=== PATIENT | female | born 1995 | race African-American/Black ===

== ENCOUNTER 2018-01-12 06:33 | Inpatient (IN) | payer MEDICAID ==
[~2018-01-12] VITALS: Ht 162.6 cm; Wt 59.0 kg
[2018-01-12] MEDS ORDERED: LACTATED RINGERS 1,000 ML IV SCH (06:50)
[2018-01-12] MEDS ORDERED: OXYTOCIN 30U/ 0.9% NaCL 500ML 500 ML IV ONE (06:50)
[2018-01-12] MEDS ORDERED: D5%-LACTATED RINGERS 1,000 ML IV SCH (06:50)
[2018-01-12] MEDS ORDERED: NEWBORN KIT ONE (06:56)
[2018-01-12] MEDS ORDERED: LIDOCAINE/PF 1%, 30ML ONE (06:56)
[2018-01-12] MEDS ORDERED: OXYTOCIN 30U/ 0.9% NaCL 500ML 500 ML ONE (06:57)
[2018-01-12] MEDS ORDERED: MISOPROSTOL 200 MCG TABLET ONE (06:57)
[2018-01-12] MEDS ORDERED: FENTANYL PF 100 MCG/2ML IVPush PRN (07:00)
[2018-01-12] MEDS ORDERED: CALCIUM CARBONATE 500 MG TAB.CHEW PO PRN (07:00)
[2018-01-12] MEDS ORDERED: ONDANSETRON 2MG/ML, 2ML IVPush PRN (07:00)
[2018-01-12] MEDS ORDERED: TERBUTALINE 1 MG/ML, 1ML IVPush PRN (07:00)
[2018-01-12] MEDS ORDERED: FENTANYL PF 100 MCG/2ML IV PRN (07:00)
[2018-01-12] MEDS ORDERED: FENTANYL PF 100 MCG/2ML ONE (07:08)
[2018-01-12 07:31] LABS: BASOPHILS # (AUTO) 0.04 x10^3/uL (0-0.1); BASOPHILS % (AUTO) 1 % (0-1); EOSINOPHILS # (AUTO) 0.02 x10^3/uL (0-0.4); EOSINOPHILS % (AUTO) 0 % (1-7); LYMPHOCYTES # (AUTO) 1.35 x10^3/uL (1-3.4); LYMPHOCYTES % (AUTO) 16 % (22-44); MD NO; MEAN CORPUSCULAR HEMOGLOBIN 26.9 pg (27.0-34.8); MEAN CORPUSCULAR HGB CONC 32.6 g/dL (32.4-35.8); MEAN CORPUSCULAR VOLUME 82.5 fL (80-100); MEAN PLATELET VOLUME 8.6 fL (7.4-10.4); MONOCYTES # (AUTO) 1.05 x10^3/uL (0.2-0.8); MONOCYTES % (AUTO) 13 % (2-9); NEUTROPHILS # (AUTO) 5.96 x10^3/uL (1.8-6.8); NEUTROPHILS % (AUTO) 71 % (42-75); PLATELET COUNT 207 x10^3/uL (130-400); RED BLOOD COUNT 3.99 x10^6/uL (3.82-5.3)
[2018-01-12] MEDS ORDERED: IBUPROFEN 600 MG TABLET ONE (09:17)
[2018-01-12] MEDS: OXYTOCIN 30U/ 0.9% NaCL 500ML 500 ML IV SCH ×2 (09:20→19:20)
[2018-01-12] MEDS ORDERED: GLYCERIN ADULT SUPP PR PRN (09:30)
[2018-01-12] MEDS ORDERED: OXYcodone/APAP 5/325MG TABLET PO PRN (09:30)
[2018-01-12] MEDS ORDERED: ACETAMINOPHEN 325 MG TABLET PO PRN (09:30)
[2018-01-12] MEDS: IBUPROFEN 600 MG TABLET PO PRN ×3 (09:36→21:45)
[2018-01-12] MEDS ORDERED: PREN1TAB60 PO (10:21)
[2018-01-12] MEDS ORDERED: iron PO (10:22)
[2018-01-12 11:20] VITALS: BP 99/65
[2018-01-12 15:44] VITALS: BP 104/72
[2018-01-12 16:54] LABS: MEAN CORPUSCULAR HEMOGLOBIN 26.8 pg (27.0-34.8); MEAN CORPUSCULAR HGB CONC 32.2 g/dL (32.4-35.8); MEAN CORPUSCULAR VOLUME 83.2 fL (80-100); MEAN PLATELET VOLUME 7.9 fL (7.4-10.4); PLATELET COUNT 194 x10^3/uL (130-400); RED BLOOD COUNT 3.46 x10^6/uL (3.82-5.3); RED CELL DISTRIBUTION WIDTH 16.2 % (9.6-15.2)
[2018-01-12 17:12] LABS: BASOPHILS # (AUTO) 0.05 x10^3/uL (0-0.1); BASOPHILS % (AUTO) 0 % (0-1); EOSINOPHILS # (AUTO) 0.01 x10^3/uL (0-0.4); EOSINOPHILS % (AUTO) 0 % (1-7); LYMPHOCYTES # (AUTO) 1.26 x10^3/uL (1-3.4); LYMPHOCYTES % (AUTO) 9 % (22-44); MD SCAN; MONOCYTES # (AUTO) 1.82 x10^3/uL (0.2-0.8); MONOCYTES % (AUTO) 13 % (2-9); NEUTROPHILS # (AUTO) 11.39 x10^3/uL (1.8-6.8); NEUTROPHILS % (AUTO) 78 % (42-75)
[2018-01-12 20:40] VITALS: BP 98/67
[2018-01-12] MEDS: DOCUSATE 100 MG CAPSULE PO PRN (21:45)
[2018-01-12 23:45] VITALS: BP 99/67
[2018-01-13 04:10] VITALS: BP 95/62
[2018-01-13] MEDS: OXYTOCIN 30U/ 0.9% NaCL 500ML 500 ML IV SCH (05:20)
[2018-01-13] MEDS: DOCUSATE 100 MG CAPSULE PO PRN (08:04)
[2018-01-13 08:25] VITALS: BP 98/65
[2018-01-13] MEDS ORDERED: PRENATAL VIT/IRON/FA 1 EACH TABLET PO SCH (09:00)
[2018-01-13] MEDS ORDERED: IBUP-1222 PO (11:18)
[2018-01-13] MEDS ORDERED: DIPH,PERTUSS(ACELL),TET VAC/PF NC IM-VACC ONE ×2 (11:45→12:00)
== END 2018-01-13 14:00 | disposition home or self-care (01) | DRG 775 ==
LOC: LDOP 06:33 → LDIP 06:56 → 2NW 10:46
PROVIDERS: ADMIT Obstetrics & Gynecology; ATTEND Obstetrics & Gynecology
PROC: 10E0XZZ Delivery of Products of Conception, External Approach (ICD-10-PCS; principal; 2018-01-13)
PROC: 0HQ9XZZ Repair Perineum Skin, External Approach (ICD-10-PCS; 2018-01-13)
DX: O70.0 First degree perineal laceration during delivery (principal); Z37.0 Single live birth; Z3A.37 37 weeks gestation of pregnancy
CPT/HCPCS: 36415; 85025; 86850; 86900; 90715; J3010; J2590; J7120

== ENCOUNTER 2018-09-16 20:37 | Emergency (ER) | payer SELFPAY ==
[~2018-09-16] VITALS: Ht 162.6 cm; Wt 52.3 kg
[~2018-09-16 20:37] MED LIST: IBUP-1222 PO; PREN1TAB60 PO; iron PO
--- NOTE | 2018-09-16 22:30 | NUR ---
NO ANSWER WHEN CALLED IN LOBBY
--- NOTE | 2018-09-16 22:41 | NUR ---
NO ANSWER WHEN CALLED
--- NOTE | 2018-09-17 01:20 | NUR ---
URINE SAMPLE PROVIDED. COLLECTED AND SENT TO LAB.
[2018-09-17 01:34] LABS: HCG UR SG 1.024 (1.003-1.030); MICROSCOPIC AUTO
[2018-09-17 01:38] LABS: CULTURE INDICATED? YES
[2018-09-17] MEDS ORDERED: CEFDINIR 300 MG CAPSULE ONE (01:54)
[2018-09-17] MEDS ORDERED: PHENAZOPYRIDINE 200 MG TABLET ONE (01:54)
[2018-09-17] MEDS ORDERED: CEFDINIR 300 MG CAPSULE PO SCH (02:00)
[2018-09-17] MEDS ORDERED: PHENAZOPYRIDINE 200 MG TABLET PO ONE (02:00)
[2018-09-17 02:01] VITALS: BP 97/59
[2018-09-17] MEDS ORDERED: CEFDINIR 300 MG CAPSULE PO ONE (02:30)
== END 2018-09-17 02:03 | disposition home or self-care (01) ==
LOC: ED 09-17 01:57
DX: N39.0 Urinary tract infection, site not specified (principal)
CPT/HCPCS: 81001; 81025; 87077; 87086; 87186; 99283

== ENCOUNTER 2019-01-28 23:13 | Emergency (ER) | payer SELFPAY ==
[~2019-01-28] VITALS: Ht 162.6 cm; Wt 52.3 kg
[2019-01-28 23:14] VITALS: BP 102/67
--- NOTE | 2019-01-28 23:32 | NUR ---
PT AMBULATED STEADILY TO ROOM FROM LOBBY WITH RN. PT REPORTS VAGINAL DC "YELLOW" AND IS CONCERNED OF STD EXPOSURE. PT DENIES URINARY S/S, ABD PAIN, NAUSEA OR VOMITING. PELVIC GURNEY/PELVIC CART IN ROOM. PT CHANGED TO GOWN.
--- NOTE | 2019-01-28 23:34 | NUR ---
UA COLLECTED AND SENT
[2019-01-28 23:49] LABS: HCG UR SG 1.028 (1.003-1.030)
[2019-01-28 23:50] LABS: CULTURE INDICATED? YES; MICROSCOPIC INDICATED
[2019-01-29 00:14] LABS: CLUE CELLS NONE SEEN (NONE SEEN)
[2019-01-29 00:15] LABS: WET PREP WBCS MANY (FEW)
[2019-01-29] MEDS ORDERED: metroNIDAZOLE 500 MG TABLET ONE (00:21)
[2019-01-29] MEDS ORDERED: metroNIDAZOLE 500 MG TABLET PO ONE (00:30)
--- NOTE | 2019-01-29 00:45 | NUR ---
NO S/S OF MEDICATION RXN NOTED. DC EDUCATION PROVIDED, PT DEMONSTRATES UNDERSTANDING. PT AMBULATED STEADILY TO DC WITH RN
== END 2019-01-29 00:46 | disposition home or self-care (01) ==
LOC: ED 23:59
DX: A59.01 Trichomonal vulvovaginitis (principal)
CPT/HCPCS: 81001; 81025; 87086; 87210; 87491; 87591; 87808; 99283

== ENCOUNTER 2019-09-29 20:40 | Emergency (ER) | payer BC ==
[~2019-09-29] VITALS: Ht 157.5 cm; Wt 55.6 kg
--- NOTE | 2019-09-29 20:58 | NUR ---
PT WAS AMBULATORY TO ED ROOM 24 W/ STEADY GAIT. A&OX4, RESP EVEN & UNLABORED, OCCASIONAL DRY COUGH NOTED, SPEECH CLEAR, SKIN WNL. COUGH STARTED 2 WKS AGO, SORE THROAT STARTED 3 WKS AGO, VAG BLEED STARTED 1 WK AGO. VOMITED THIS MORNING. DENIES ABD PAIN, UTI SX. NO FLU SHOT THIS SEASON. AB0 NO SEXUAL ACTIVITY "for a few weeks". UNPROTECTED SEX. LMP:09/11/2019. Addendum: 09/29/19 at 2112 by JAHAIRA VAG BLEED: DAILY INTERMITTEN SPOTTING
--- NOTE | 2019-09-29 21:19 | NUR ---
DR THOMPSON BS FOR EXAM.
[2019-09-29] MEDS ORDERED: ONDANSETRON ODT 4 MG PO ONE (21:30)
--- NOTE | 2019-09-29 21:45 | NUR ---
HOSPITAL MEDICAL ASSISTANT CART TO ROOM
--- NOTE | 2019-09-29 21:50 | NUR ---
AMBULATORY TO & FROM [facility] W/OUT INCIDENT, GAIT STEADY; VOIDED SPECIMEN PROVIDED. BOLT MAN BED TO ROOM.
[2019-09-29 22:06] LABS: BASOPHILS # (AUTO) 0.05 x10^3/uL (0-0.1); BASOPHILS % (AUTO) 1 % (0-1); EOSINOPHILS # (AUTO) 0.17 x10^3/uL (0-0.4); EOSINOPHILS % (AUTO) 3 % (1-7); LYMPHOCYTES % (AUTO) 40 % (22-44); MD NO; MEAN CORPUSCULAR HEMOGLOBIN 29.4 pg (27.0-34.8); MEAN CORPUSCULAR HGB CONC 33.3 g/dL (32.4-35.8); MEAN CORPUSCULAR VOLUME 88.5 fL (80-100); MEAN PLATELET VOLUME 8.1 fL (7.4-10.4); MONOCYTES # (AUTO) 0.62 x10^3/uL (0.2-0.8); MONOCYTES % (AUTO) 11 % (2-9); NEUTROPHILS # (AUTO) 2.52 x10^3/uL (1.8-6.8); NEUTROPHILS % (AUTO) 45 % (42-75); PLATELET COUNT 300 x10^3/uL (130-400); RED BLOOD COUNT 4.83 x10^6/uL (3.82-5.3); RED CELL DISTRIBUTION WIDTH 14.4 % (9.6-15.2)
[2019-09-29 22:09] LABS: CULTURE INDICATED? YES; MICROSCOPIC INDICATED
--- NOTE | 2019-09-29 22:10 | NUR ---
PT REPORT TO CATHERINE LOPEZ. PT CARE TRANSFERRED.
[2019-09-29 22:40] LABS: ALBUMIN 3.6 g/dL (3.4-5.0); ANION GAP 5 mmol/L (5-15); CALCIUM 8.9 mg/dL (8.5-10.1); CHLORIDE 109 mmol/L (98-107); CREATININE 0.77 mg/dL (0.55-1.02)
[2019-09-29] MEDS ORDERED: ONDANSETRON ODT 4 MG ONE (22:45)
[2019-09-29 23:05] LABS: CLUE CELLS PRESENT (NONE SEEN); WET PREP WBCS MODERATE (FEW)
[2019-09-29 23:53] VITALS: BP 94/59
== END 2019-09-30 00:16 | disposition home or self-care (01) ==
LOC: ED 21:58
DX: R05 Cough (principal); R11.2 Nausea with vomiting, unspecified; J02.9 Acute pharyngitis, unspecified; N93.9 Abnormal uterine and vaginal bleeding, unspecified
CPT/HCPCS: 36415; 80048; 81001; 82040; 84703; 85025; 87086; 87210; 87491; 87591; 87808; 99283; Q0162